=== PATIENT | female | born 2000 | race Two or more races ===

== ENCOUNTER 2022-04-09 23:01 | Emergency (ER) | payer OTHER ==
[~2022-04-09] VITALS: Ht 160 cm; Wt 58.1 kg
== END 2022-04-10 03:50 | disposition home or self-care (01) ==
LOC: ER 23:01
DX: O21.0 Mild hyperemesis gravidarum (principal); Z3A.01 Less than 8 weeks gestation of pregnancy

== ENCOUNTER 2022-06-23 15:08 | Emergency (ER) | payer OTHER ==
[~2022-06-23] VITALS: Ht 170.2 cm; Wt 61.2 kg
== END 2022-06-23 20:03 | disposition home or self-care (01) ==
LOC: ER 15:08
DX: O23.42 Unspecified infection of urinary tract in pregnancy, second trimester (principal); N39.0 Urinary tract infection, site not specified; Z3A.17 17 weeks gestation of pregnancy; Z20.822 Contact with and (suspected) exposure to COVID-19

== ENCOUNTER 2022-11-14 21:59 | Inpatient (IN) | payer OTHER ==
[~2022-11-14] VITALS: Ht 162.6 cm; Wt 69.9 kg
[2022-11-14] MEDS ORDERED: PRENATAL TABLE1 EAC1 PO (22:08)
[2022-11-17] MEDS ORDERED: CEPHALEXIN500 MG PO (06:15)
== END 2022-11-17 13:03 | disposition home or self-care (01) | DRG 807 ==
LOC: LDR 21:59 → OB/GYN 11-15 13:26
PROVIDERS: ADMIT Specialist; ATTEND Specialist
PROC: 4A1HXCZ Monitoring of Products of Conception, Cardiac Rate, External Approach (ICD-10-PCS; 2022-11-14)
PROC: 10E0XZZ Delivery of Products of Conception, External Approach (ICD-10-PCS; principal; 2022-11-15)
DX: O80 Encounter for full-term uncomplicated delivery (principal); Z37.0 Single live birth; Z3A.38 38 weeks gestation of pregnancy; Z20.822 Contact with and (suspected) exposure to COVID-19

== ENCOUNTER 2024-08-29 16:15 | Emergency (ER) | payer OTHER ==
[~2024-08-29] VITALS: Ht 165.1 cm; Wt 61.7 kg
[~2024-08-29 16:15] MED LIST: CEPHALEXIN500 MG PO; PRENATAL TABLE1 EAC1 PO
[2024-08-29] MEDS ORDERED: FAMOTIDINE/PF 20 MG in 0.9 % SODIUM CHLORIDE 8 ML IV PUSH STA (18:13)
[2024-08-29] MEDS ORDERED: KETOROLAC TROMETHAMINE 30 MG VIAL IV ONE (18:15)
[2024-08-29] MEDS ORDERED: KETOROLAC TROMETHAMINE 30 MG VIAL ONE (18:18)
[2024-08-29] MEDS ORDERED: FAMOTIDINE/PF 20 MG/2 ML VIAL ONE (18:18)
[2024-08-29 18:43] LABS: HEMATOCRIT 34.6 % (36.0-45.00); HEMOGLOBIN 11.1 g/dL (12.0-15.00); MEAN CELL VOLUME 89.1 fL (80.00-100.00); MEAN CORPUSCULAR HEMOGLOBIN 28.7 pg (27.00-32.0); MEAN CORPUSCULAR HGB CONC 32.2 g/dl (32.0-36.0); PLATELET COUNT 343 K/uL (150-450); RED BLOOD COUNT 3.88 M/uL (4.00-6.00); RED CELL DISTRIBUTION WIDTH 12.6 % (11.5-14.5)
[2024-08-29 19:07] LABS: ALBUMIN 3.6 gm/dL (3.4-5.0); ALKALINE PHOSPHATASE 117 U/L (50-136); ALT/SGPT 14 U/L (12-78); AMYLASE 41 U/L (25-115); ANION GAP 8 (10.0-20.0); AST/SGOT 14 U/L (15-37); BILIRUBIN TOTAL 0.26 mg/dL (0.3-1.2); BILIRUBIN,CONJUGATED < 0.10 mg/dL (0.0-0.2); BILIRUBIN,UNCONJUGATED 0.16 mg/dL (0.0-0.6); BLOOD UREA NITROGEN 14 mg/dL (7-18); BUN CREA RATIO 21 (7.0-25.0); CALCIUM 9.2 mg/dL (8.5-10.1); CARBON DIOXIDE 30 mEq/L (21-32); CHLORIDE 107 mmol/L (98-107); CREATININE SERUM 0.67 mg/dL (0.55-1.02); GFR 109.07; GLOBULINA 4.3 G/DL (2.4-3.5); GLUCOSE FASTING 100 mg/dL (65-100); LIPASE 22 U/L (13-75); OSMOLALITY SERUM 282 MOSM/KG (275-295); POTASSIUM 3.57 mEq/L (3.5-5.1); SODIUM 141 mmol/L (136-145); TOTAL PROTEIN 7.9 gm/dL (6.4-8.2)
[2024-08-29] MEDS ORDERED: PEPCID AC20 MG PO (20:26)
== END 2024-08-29 20:37 | disposition home or self-care (01) ==
LOC: ER 16:16
PROVIDERS: General Practice
DX: K29.70 Gastritis, unspecified, without bleeding (principal)